=== PATIENT | female | born 1950 | race Two or more races ===

== ENCOUNTER 2021-07-05 05:55 | Day surgery (SDC) | payer OTHER ==
[~2021-07-05] VITALS: Ht 167.6 cm; Wt 83.9 kg
[~2021-07-05 05:55] MED LIST: [UNRECOGNIZED DRUG - OTHER]
== END 2021-07-05 14:05 | disposition home or self-care (01) ==
LOC: CIR.AMB 05:55
PROVIDERS: ATTEND Obstetrics & Gynecology
DX: N84.0 Polyp of corpus uteri (principal); Z20.822 Contact with and (suspected) exposure to COVID-19; M19.90 Unspecified osteoarthritis, unspecified site